=== PATIENT | male | born 1975 | race Caucasian/White ===

== ENCOUNTER 2016-08-16 09:39 | Outpatient (CLI) | payer MEDICARE ==
[2016-07-28 00:01] VITALS: BP 161/99
[2016-08-16 10:27] LABS: eGFR (African) > 60; eGFR (Non-African) > 60
== END 2016-08-16 09:40 ==
LOC: LAB 09:39
PROVIDERS: ATTEND Physician Assistant
DX: Z00.00 Encounter for general adult medical examination without abnormal findings (principal); Z83.3 Family history of diabetes mellitus; Z13.6 Encounter for screening for cardiovascular disorders
CPT/HCPCS: 36415; 80053; 80061

== ENCOUNTER 2016-08-19 20:45 | Emergency (ER) | payer MEDICAID, MEDICARE ==
[2016-08-19] MEDS ORDERED: ALPRAZOLAM 0.5 MG TABLET PO ONE (21:06)
--- NOTE | 2016-08-19 21:40 | ED Physician Documentation ---
General Adult - HISTORIAN Historian: patient - HPI Stated Complaint: Anxiety Chief Complaint: General Adult Additional Information: panic attack, states 1 mg of xanax doesm't work, 1.5 works some, ativan no help Onset: hours (3) Timing: still present Severity: moderate Further Comments: no - ROS CONST: sweating EYES/ENT: none CVS/RESP: shortness of breath MS/SKIN/LYMPH: none NEURO/PSYCH: anxiety - PAST HX Past History: other (anxiety) Other History: none Surgeries/Procedures: none Immunizations: UTD Allergies/Adverse Reactions: Allergies Allergy/AdvReac Type Severity Reaction Status Date / Time No Known Allergies Allergy Verified 08/19/16 21:03 Home Medications: Ambulatory Orders Medication Instructions Recorded Quetiapine Fumarate [Seroquel Xr] 50 mg PO D 07/26/14 Doxepin HCl [Sinequan] 50 mg PO DAILY 07/03/15 Alprazolam [Xanax] 1 mg PO TID PRN 01/09/16 Atorvastatin Calcium [Lipitor] 10 mg PO D 08/19/16 Risperidone [Risperidone] 3 mg PO HS 08/19/16 - SOCIAL HX Smoking History: cigarettes Alcohol Use: none Drug Use: none - FAMILY HX Family History: Yes - VITAL SIGNS Vital Signs: Vital Signs Temp Pulse Resp BP Pulse Ox 98.2 F 109 H 18 149/86 99 08/19/16 20:45 08/19/16 20:45 08/19/16 20:45 08/19/16 20:45 08/19/16 20:45 - REVIEWED ASSESSMENTS Nursing Assessment Reviewed: Yes Vitals Reviewed: Yes Progress - Results/Orders Results/Orders: no testing ordered - Progress Progress: pt. given 2 mg xanax p.o. in er Critical Care Note - Critical Care Note Total Time (mins): 0 ED Results Lab/Radiology - Lab Results Lab Results: none ordered - Radiology Radiology Impressions: none ordered - Orders Orders: ED Orders Category Date Time Status Alprazolam [Xanax] Med 08/19/16 21:06 Discontinued 2 mg PO NOW ONE General Adult Physical Exam - PHYSICAL EXAM GENERAL APPEARANCE: mild distress EENT: eye inspection normal, ENT inspection normal, pharynx normal, no signs of dehydration, MISBAH, no nystagmus, TM's nml NECK: normal inspection, thyroid normal, supple RESPIRATORY: no resp distress, chest non-tender, breath sounds normal CVS: reg rate & rhythm, heart sounds normal, equal pulses, no murmur, no gallop , PMI nml ABDOMEN: soft, no organomegaly, normal bowel sounds, no abdominal bruit, no distension, non-tender BACK: normal inspection, no CVA tenderness SKIN: warm/dry, normal color EXTREMITIES: non-tender, normal range of motion, no evidence of injury, no edema NEURO: oriented X3, CN's nml as tested, motor nml, sensation nml, cognition normal, other (very mildly anxious) Discharge Clincal Impression: Anxiety Home Medications: Ambulatory Orders Quetiapine Fumarate [Seroquel Xr] 50 mg PO D 07/26/14 Doxepin HCl [Sinequan] 50 mg PO DAILY 07/03/15 Alprazolam [Xanax] 1 mg PO TID PRN 01/09/16 Atorvastatin Calcium [Lipitor] 10 mg PO D 08/19/16 Risperidone [Risperidone] 3 mg PO HS 08/19/16 Comments: given 2 mg xanax in er. Discharged with increase to 2 mg tid prn Condition: Stable Disposition: HOME, SELF-CARE Decision to Admit: NO Decision Time: 21:45
[2016-08-20 00:57] VITALS: BP 156/72
== END 2016-08-19 22:00 | disposition home or self-care (01) ==
LOC: ED 20:45
DX: F41.9 Anxiety disorder, unspecified (principal)
CPT/HCPCS: 99282; 99283

== ENCOUNTER 2016-08-22 10:50 | Emergency (ER) | payer MEDICAID ==
--- NOTE | 2016-08-22 11:53 | ED Physician Documentation ---
Psychological Disorders - HISTORIAN Historian: patient - HPI Stated Complaint: anxiety Chief Complaint: Psychological Disorder Onset: days ago (7) Duration: gradual onset Intent: denies: suicide, wants to escape Severity: moderate Situational Problems: No Further Comments: yes (41 yo male presents for "anxiety attack." Pt with long standing history of PTSD and anxiety. Recently had a medication change due to insurance which took him off Invega and on Risperdal by psychiatrist Dr Loyola. He says his anxiety has gotten worse since that time. WAs here 3 days ago for same c/o and given more xanax which he says has not been working. He denies suicidal thoughts or behavior) - ROS CONST: none - PAST HX Psychiatric problems: psychiatric problems Allergies/Adverse Reactions: Allergies Allergy/AdvReac Type Severity Reaction Status Date / Time No Known Allergies Allergy Verified 08/22/16 11:12 Home Medications: Ambulatory Orders Medication Instructions Recorded Quetiapine Fumarate [Seroquel Xr] 50 mg PO D 07/26/14 Doxepin HCl [Sinequan] 50 mg PO DAILY 07/03/15 Alprazolam [Xanax] 1 mg PO TID PRN 01/09/16 Atorvastatin Calcium [Lipitor] 10 mg PO D 08/19/16 Risperidone [Risperidone] 3 mg PO HS 08/19/16 Hydroxyzine Pamoate [Vistaril] 25 mg PO Q4H PRN #20 capsule 08/22/16 - Social HX Smoking History: less than 1 pack/day - Family HX Family HX: mental illness - VITAL SIGNS Vital Signs: Vital Signs Temp Pulse Resp BP Pulse Ox 97.4 F L 132 H 20 182/97 99 08/22/16 10:59 08/22/16 10:59 08/22/16 10:59 08/22/16 10:59 08/22/16 10:59 - REVIEWED ASSESSMENTS Nursing Assessment Reviewed: Yes Vitals Reviewed: Yes Progress - Progress Progress: Discussed case with patient case coordinator at [facility] in [place], [place] where he goes to see his psychiatrist. Aware of the increasing anxiety symptoms since medication change. The psychiatrist is to call him tomorrow to discuss any further medication changes. In the meantime, we will use Vistaril 25mg PRN anxiety for today and have him follow up with psychiatry tomorrow. Pt is not suicidal, continues to deny Psych Physical Exam - Physical Exam General Appearance: no acute distress, other (anxious) ENT: nml ENT inspection Eyes: PERRL, EOM's intact Mental Status: mood/affect nml. No: suicidal ideation Suicide Attempts: denies Orientation: nml x3 Cranial Nerves: CN's intact as tested Sensory, Motor: nml motor response Neck/Back: normal inspection Abdomen: non-tender Discharge Clincal Impression: Anxiety Additional Instructions: Take Vistaril 25mg every 4-6 hours as needed for any anxiety symptoms May take with your Xanax PRN Your psychiatrist will call you tomorrow from the [facility] Home Medications: Ambulatory Orders Quetiapine Fumarate [Seroquel Xr] 50 mg PO D 07/26/14 Doxepin HCl [Sinequan] 50 mg PO DAILY 07/03/15 Alprazolam [Xanax] 1 mg PO TID PRN 01/09/16 Atorvastatin Calcium [Lipitor] 10 mg PO D 08/19/16 Risperidone [Risperidone] 3 mg PO HS 08/19/16 Hydroxyzine Pamoate [Vistaril] 25 mg PO Q4H PRN #20 capsule 08/22/16 Condition: Good Disposition: HOME, SELF-CARE Decision to Admit: NO Decision Time: 11:56
[2016-08-22 12:12] VITALS: BP 124/81
== END 2016-08-22 12:05 | disposition home or self-care (01) ==
LOC: ED 10:50
DX: F41.9 Anxiety disorder, unspecified (principal)
CPT/HCPCS: 99283

== ENCOUNTER 2016-09-12 16:59 | Emergency (ER) | payer MEDICAID ==
--- NOTE | 2016-09-12 18:16 | ED Physician Documentation ---
General Adult - HISTORIAN Historian: patient - HPI Chief Complaint: General Adult Additional Information: dehydration anxiety recent headache which responded to 1 gatoraid. pt doen not work kor eat properly. I JUST SIT AROUND THE HOUSE ALL DAY AND WORRY Onset: days ago (3-4) Timing: still present, better Severity: moderate Further Comments: yes (pt has multi psyche problems) - ROS CONST: no problems EYES/ENT: none CVS/RESP: chest pain, shortness of breath (relieved w/xanax) GI/: none - PAST HX Past History: other Other History: other (anxiety ptsd schizo affective disorder htn hi chol asthma multi substance abuse) Surgeries/Procedures: none Allergies/Adverse Reactions: Allergies Allergy/AdvReac Type Severity Reaction Status Date / Time No Known Allergies Allergy Verified 09/12/16 17:38 Home Medications: Ambulatory Orders Medication Instructions Recorded Quetiapine Fumarate [Seroquel Xr] 50 mg PO D 07/26/14 Doxepin HCl [Sinequan] 50 mg PO DAILY 07/03/15 Alprazolam [Xanax] 2 mg PO TID PRN 01/09/16 Atorvastatin Calcium [Lipitor] 10 mg PO D 08/19/16 Risperidone [Risperidone] 3 mg PO HS 08/19/16 Hydroxyzine Pamoate [Vistaril] 25 mg PO Q4H PRN #20 capsule 08/22/16 - SOCIAL HX Smoking History: greater than 1 pack/day Alcohol Use: heavy Drug Use: marijuana (also marked excess soda) - FAMILY HX Family History: No - VITAL SIGNS Vital Signs: Vital Signs Temp Pulse Resp BP Pulse Ox 124/81 08/22/16 12:05 - REVIEWED ASSESSMENTS Nursing Assessment Reviewed: Yes Vitals Reviewed: Yes General Adult Physical Exam - PHYSICAL EXAM GENERAL APPEARANCE: mild distress EENT: eye inspection normal NECK: normal inspection RESPIRATORY: no resp distress, chest non-tender, breath sounds normal CVS: reg rate & rhythm, heart sounds normal ABDOMEN: soft, non-tender BACK: normal inspection SKIN: warm/dry, normal color. No: cyanosis, diaphoresis, jaundice EXTREMITIES: non-tender, normal range of motion NEURO: oriented X3, depressed mood/affect. No: mood/affect nml Discharge Clincal Impression: dehydration, multi subsstance abuse, multi psyche disorders Home Medications: Ambulatory Orders Quetiapine Fumarate [Seroquel Xr] 50 mg PO D 07/26/14 Doxepin HCl [Sinequan] 50 mg PO DAILY 07/03/15 Alprazolam [Xanax] 2 mg PO TID PRN 01/09/16 Atorvastatin Calcium [Lipitor] 10 mg PO D 08/19/16 Risperidone [Risperidone] 3 mg PO HS 08/19/16 Hydroxyzine Pamoate [Vistaril] 25 mg PO Q4H PRN #20 capsule 08/22/16 Comments: home bal nutrition normal fluids stop cigs and et al subsstance abuse Condition: Fair Disposition: HOME, SELF-CARE Decision to Admit: NO Decision Time: 18:26
[2016-09-12 18:24] VITALS: BP 149/86
== END 2016-09-12 18:22 | disposition home or self-care (01) ==
LOC: ED 16:59
DX: E86.0 Dehydration (principal); F17.210 Nicotine dependence, cigarettes, uncomplicated; F19.10 Other psychoactive substance abuse, uncomplicated; F99 Mental disorder, not otherwise specified
CPT/HCPCS: 99283

== ENCOUNTER 2016-11-04 07:57 | Outpatient (CLI) | payer MEDICAID ==
[2016-11-04 08:45] LABS: eGFR (African) > 60; eGFR (Non-African) > 60
== END 2016-11-04 07:58 ==
LOC: LAB 07:57
PROVIDERS: ATTEND Physician Assistant
DX: E78.00 Pure hypercholesterolemia, unspecified (principal); Z79.899 Other long term (current) drug therapy
CPT/HCPCS: 36415; 80053; 80061